=== PATIENT | female | born 1980 | race Caucasian/White ===

== ENCOUNTER 2016-08-30 12:11 | Day surgery (SDC) | payer OTHER ==
[~2016-08-30] VITALS: Ht 157.5 cm; Wt 64.4 kg
[2016-08-30 13:18] VITALS: Ht 157.5 cm; Wt 64.4 kg
[2016-08-30] MEDS ORDERED: CHOL20003 PO (13:34)
[2016-08-30] MEDS ORDERED: MULTI PO (13:34)
[2016-08-30] MEDS ORDERED: PROPOFOL 20 ML ONE (14:42)
[2016-08-30] MEDS ORDERED: FENTAnyl 50 MCG/ML VIAL ONE ×2 (14:43→14:49)
[2016-08-30] MEDS ORDERED: MIDAZOLAM 1 MG/ML 2 ML INJ ONE ×2 (14:43→14:49)
[2016-08-30] MEDS ORDERED: PROPOFOL 40 ML ONE (14:48)
[2016-08-30 15:04] VITALS: BP 122/63; PULSE 77; RESP 20
[2016-08-30 15:51] VITALS: BP 102/55; PULSE 64; RESP 18
--- NOTE | 2016-09-03 05:49 | GILP ---
DATE OF PROCEDURE: PROCEDURE: Colonoscopy to cecum. BRIEF HISTORY AND INDICATIONS: The patient is being evaluated for hematochezia. PREMEDICATION: Monitored anesthesia care by anesthesiologist. SURGEON: Dom Shanks MD INSTRUMENT USED: Olympus colonoscope. PREPARATION: Adequate. TECHNIQUE: After informed consent, with the patient/relatives understanding the procedure, its indic ations potential risks and complications, including but not limited to: allergic reaction, bleeding, perforation, infection, missed lesions and after all pertinent questions were answered to the patie nt's satisfaction; the patient/relatives signed the witnessed informed consent. Following this, premedication was administered slowly IV push by under careful cardiovascular and re spiratory monitoring with pulse oximetry, automatic blood pressure and tree trimming supervisor. Once the sedativ e effect was achieved, the patient was placed in the left lateral decubitus position, digital rectal examination was performed. The colonoscope was then introduced and advanced under visual control th roughout all segments of the colon including: the rectum, sigmoid, descending colon, splenic flexure , transverse colon, hepatic flexure, ascending colon and finally reaching the cecum which was clearl y identified by transillumination, finger indentation and the ileocecal valve. Careful examination o f the mucosa of the lower gastrointestinal tract both on insertion as well as withdrawal of the inst rument disclosed the following findings: Rectal Examination: There is a large prolapsing internal hemorrhoid. Colonic Mucosa: The colonic mucosa is unremarkable throughout. The ileocecal valve was clearly iden tified and appears unremarkable. The instrument was withdrawn reexamining the mucosa in detail. No additional abnormalities are noted with exception of moderate to large internal hemorrhoids with pr olapsing internal hemorrhoids. The instrument was then withdrawn; the patient tolerated the procedure well and was transferred out of the [facility] awake and in good condition to continue recovery under observation. PLAN: The patient will be continued on present regimen. Surgical evaluation for removal prolapsing hemorrhoid is recommended. Dictated By: DOM SHANKS MS/MARISELA Conf#: [id number] DID#: [id number]
== END 2016-08-30 20:13 | disposition home or self-care (01) ==
LOC: GIL 12:11
PROVIDERS: ATTEND Internal Medicine Gastroenterology
DX: K92.1 Melena (principal); K64.8 Other hemorrhoids; F17.200 Nicotine dependence, unspecified, uncomplicated; Z88.0 Allergy status to penicillin; E66.9 Obesity, unspecified; Z68.26 Body mass index [BMI] 26.0-26.9, adult
CPT/HCPCS: 45378; J2250; J3010; Z7610